=== PATIENT | female | born 1965 | race Caucasian/White ===

== ENCOUNTER 2017-12-24 06:54 | Outpatient (CLI) | payer BC | END 2017-12-24 06:55 | disposition home or self-care (01) | LOC: BICULT 06:54 | PROVIDERS: ATTEND Obstetrics & Gynecology | DX: E04.1 Nontoxic single thyroid nodule (principal) | CPT/HCPCS: 76536 ==

== ENCOUNTER 2019-10-22 06:17 | Outpatient (CLI) | payer BC, OTHER ==
[2019-10-22 10:32] LABS: #Eosinphils 0.1 thou/uL (0.0-0.7); #Lymphocytes 1.8 thou/uL (1.20-3.40); #Monocytes 0.8 thou/uL (0.11-0.59); #Neutrophils 6.8 thou/uL (1.40-6.50); %Basophils 0.5 % (0.0-1.0); %Eosinophils 0.6 % (0.0-10.0); %Lymphocytes 19.1 % (21.0-51.0); %Monocytes 8.5 % (0.0-10.0); %Neutrophils 71.3 % (42.0-75.0); Hemoglobin 14.8 g/dL (12.0-16.0); Mean Platelet Volume 7.9 fL (7.4-10.4); Platelet Count 262 thou/uL (130-400); RBC Distribution Width 11.4 % (11.5-14.5); Red Blood Cell (RBC) Count 4.61 mill/uL (4.20-5.40); White Blood Cell (WBC) Count 9.6 thou/uL (4.8-10.8)
[2019-10-22 11:09] LABS: BHCG - Serum Negative (NEGATIVE); Pregs Control Background? CLEAR/WHITE (CLR/WHITE); Pregs Control Bar Appear? YES (CONTROL BAR)
[2019-10-22 11:18] LABS: Anion Gap 13 mmol/L (10-20); BUN (Urea Nitrogen) 13 mg/dL (9.8-20.1); Calc. Creatinine Clearance 0 mL/min (70-130); Calcium 9.1 mg/dL (7.8-10.44); Carbon Dioxide 23 mmol/L (22-29); Chloride 106 mmol/L (98-107); Estimated GFR-MDRD 68; Glucose 74 mg/dL (70-105); Potassium 4.4 mmol/L (3.5-5.1); Sodium 138 mmol/L (136-145)
[2019-10-22 18:19] LABS: SARS-CoV-2 MS2 Positive; SARS-CoV-2 N Gene Negative; SARS-CoV-2 S Gene Negative; SARS-CoV-2 orf1ab Negative
== END 2019-10-22 06:18 | disposition home or self-care (01) ==
LOC: LABBT 06:17
PROVIDERS: ATTEND Orthopaedic Surgery
DX: Z01.818 Encounter for other preprocedural examination (principal); Z11.59 Encounter for screening for other viral diseases; S83.207A Unspecified tear of unspecified meniscus, current injury, left knee, initial encounter
CPT/HCPCS: 80048; 84703; 85025; 87635; 93005; 93010; U0003

== ENCOUNTER 2019-10-23 08:33 | Day surgery (SDC) | payer BC ==
[2019-10-22 08:57] VITALS: BMI 23.6
[2019-10-23] MEDS ORDERED: Fentanyl 100 MCG/2 ML VIAL ONE ×2 (09:22→09:42)
[2019-10-23] MEDS ORDERED: Midazolam HCl 2 mg/2 ml Vial ONE (09:22)
[2019-10-23] MEDS ORDERED: Bupivacaine PF 0.5% 30 ML VIAL ONE ×2 (10:04→12:00)
[2019-10-23] MEDS ORDERED: Lidocaine 1% w/Epinephrine 1:100K 20 ML VIAL ONE (10:04)
[2019-10-23] MEDS ORDERED: Bupivacaine 0.25% HCL 30 ML VIAL ONE (10:04)
[2019-10-23] MEDS ORDERED: PROPOFOL 200 MG/20 ML VIAL ONE (12:00)
[2019-10-23] MEDS ORDERED: Ondansetron PF 4 MG/2 ML Vial ONE (12:00)
[2019-10-23] MEDS ORDERED: Lidocaine 2% w/Epinephrine 1:200K 20 ML VIAL ONE (12:00)
[2019-10-23] MEDS ORDERED: Dexamethasone 20 MG/5 ML VIAL ONE (12:00)
[2019-10-23] MEDS ORDERED: Lidocaine 1% PF 5 ML VIAL ONE (12:00)
--- NOTE | 2019-10-23 12:15 | OP ---
DATE OF PROCEDURE: 10/23/2019 PREOPERATIVE DIAGNOSIS: Left knee medial meniscus tear. POSTOPERATIVE DIAGNOSIS: Left knee medial meniscus tear. PROCEDURES PERFORMED: 1. Left knee arthroscopy with Partial medial meniscectomy. RESEARCH ASSISTANT PROFESSOR: None. BLOOD LOSS: Minimal. COMPLICATIONS: None. ANESTHESIA: She did have a general anesthetic as well as a local knee block. DISPOSITION: She went to recovery room in stable condition. INDICATIONS: A 53-year-old female who has been having problems with pain, catching, and swelling in the knee. She has failed nonoperative treatment and at this time decided to have surgery on the knee. DESCRIPTION OF PROCEDURE: After all appropriate consent forms were explained and signed, she was taken back to the operating room and at this time was given general anesthetic. Tourniquet was placed on left thigh. Leg was placed in arthroscopic leg sorensen. The limb was prepped and draped in standard surgical fashion. Limb was exsanguinated. Tourniquet was taken up to 300 mmHg. Inferolateral portal was established. Scope was placed into the knee joint. A needle localization technique was then used to make a medial working portal. Diagnostic arthroscopy commenced in the notch. ACL and PCL were probed, found to be intact. Medial compartment showed the femur to have some grade 2 and 3 changes. There was no unstable chondral flaps. Pictures were taken. The tibial plateau was in good condition. There was a complex tear in the posterior horn of the medial meniscus with an undersurface flap component and a horizontal cleavage component to it as well, and a partial meniscectomy was performed using meniscal biter and shaver back to a stable base. Lateral compartment was found to be completely intact. The gutters were swept through. No loose bodies were noted. The patellofemoral joint was also found to be in excellent condition. At this time, the scope was removed, knee was drained, Portals were closed with simple nylon stitch. Bulky sterile dressing was applied. Tourniquet was let down. Toes pinked up nicely. The patient was awakened and taken to recovery room in stable condition. All counts were correct at the end of the case. She did receive preoperative IV antibiotics. Job ID: [id number] [facility]
== END 2019-10-23 13:05 | disposition home or self-care (01) ==
LOC: SDC 08:33
PROVIDERS: ATTEND Orthopaedic Surgery
PROC: 0SBD4ZZ Excision of Left Knee Joint, Percutaneous Endoscopic Approach (ICD-10-PCS; principal; 2019-10-23)
DX: S83.242A Other tear of medial meniscus, current injury, left knee, initial encounter (principal); Z79.899 Other long term (current) drug therapy
CPT/HCPCS: J0690; J1100; J2001; J2250; J2405; J2704; J3010; S0020

== ENCOUNTER 2022-03-21 09:57 | Outpatient (CLI) | payer OTHER ==
[2022-03-21 11:41] LABS: #Eosinphils 0.2 10x3/uL (0.0-0.5); #Monocytes 0.8 10x3/uL (0.0-1.1); #Neutrophils 4.1 10x3/uL (1.5-8.4); %Basophils 0.6 % (0.0-2.0); %Eosinophils 2.1 % (0.0-6.0); %Lymphocytes 28.2 % (18.0-47.0); %Monocytes 11.5 % (0.0-10.0); %Neutrophils 57.3 % (40.0-75.0); Hemoglobin 14.2 g/dL (12.0-15.5); Mean Corpuscular HGB CONC 33.7 g/dL (32.0-36.0); Mean Corpuscular Hemoglobin 31.3 pg (27.0-33.0); Mean Corpuscular Volume 92.9 fl (81.6-98.3); Mean Platelet Volume 10.4 fl (7.4-10.4); Platelet Count 241 10x3/uL (150-450); Red Blood Cell (RBC) Count 4.53 10x6/uL (3.90-5.03); White Blood Cell (WBC) Count 7.2 10x3/uL (3.5-10.5)
[2022-03-21 11:55] LABS: Anion Gap 12 mmol/L (10-20); BUN (Urea Nitrogen) 18 mg/dL (9.8-20.1); Calc. Creatinine Clearance 0 mL/min (70-130); Calcium 9.7 mg/dL (7.8-10.44); Carbon Dioxide 27 mmol/L (22-29); Chloride 107 mmol/L (98-107); Estimated GFR 82; Glucose 73 mg/dL (70-105); Potassium 4.4 mmol/L (3.5-5.1); Sodium 142 mmol/L (136-145)
== END 2022-03-21 09:58 | disposition home or self-care (01) ==
LOC: LABBT 09:57
PROVIDERS: ATTEND Orthopaedic Surgery
DX: Z01.818 Encounter for other preprocedural examination (principal); S83.241A Other tear of medial meniscus, current injury, right knee, initial encounter
CPT/HCPCS: 71046; 80048; 85025; 93005; 93010

== ENCOUNTER 2022-03-23 06:14 | Day surgery (SDC) | payer OTHER ==
[2022-03-22 08:43] VITALS: BMI 25.9
[2022-03-23] MEDS ORDERED: Lidocaine 2% PF 5 ML VIAL ONE (07:03)
[2022-03-23] MEDS ORDERED: PROPOFOL 20 ML ONE (07:03)
[2022-03-23] MEDS ORDERED: fentaNYL PF 100 MCG/2 ML SYRINGE ONE (07:10)
[2022-03-23] MEDS ORDERED: CEFAZOLIN 2 GM VIAL ONE (07:15)
[2022-03-23] MEDS ORDERED: Sodium Chloride 0.9% 100 ML ONE (07:15)
[2022-03-23] MEDS ORDERED: Bupivacaine PF 0.5% 30 ML VIAL ONE (07:39)
[2022-03-23] MEDS ORDERED: Dexamethasone 20 MG/5 ML VIAL ONE (07:40)
[2022-03-23] MEDS ORDERED: PROPOFOL 200 MG/20 ML VIAL ONE (07:40)
[2022-03-23] MEDS ORDERED: Ketorolac Tromethamine 30 MG/ML VIAL ONE (07:40)
[2022-03-23] MEDS ORDERED: Ondansetron PF 4 MG/2 ML Vial ONE (07:40)
== END 2022-03-23 09:59 | disposition home or self-care (01) ==
LOC: SDC 06:14
PROVIDERS: ATTEND Orthopaedic Surgery
PROC: 0SBC4ZZ Excision of Right Knee Joint, Percutaneous Endoscopic Approach (ICD-10-PCS; principal; 2022-03-23)
DX: S83.241A Other tear of medial meniscus, current injury, right knee, initial encounter (principal); M23.8X1 Other internal derangements of right knee
CPT/HCPCS: J1100; J1885; J2001; J2405; J2704; J3490; S0020